=== PATIENT | male | born 1930 | race Caucasian/White ===

== ENCOUNTER 2018-04-30 09:04 | Emergency (ER) | payer MEDICARE, OTHER ==
[~2018-04-30] VITALS: Ht 177.8 cm; Wt 57.3 kg
[2018-04-30 09:18] VITALS: BP 155/74
[2018-04-30] MEDS ORDERED: tranexamic acid 100mg/ml inj. TP ONE (09:50)
[2018-04-30] MEDS ORDERED: LIDOcaine 4% (40 mg/ml) topical solution 50ml TP ONE (09:50)
--- NOTE | 2018-04-30 10:28 | NUR ---
PER KENNEDY LOERA, MEDICATIONS ORDERED TO BE CANCELLED BLEEDING HAS STOPPED (SEE EMAR).
== END 2018-04-30 11:13 | disposition home or self-care (01) ==
LOC: ER 09:06
DX: R04.0 Epistaxis (principal); H61.22 Impacted cerumen, left ear; J45.909 Unspecified asthma, uncomplicated
CPT/HCPCS: 99282; 99283

== ENCOUNTER 2019-03-15 15:12 | Emergency (ER) | payer MEDICARE ==
[~2019-03-15] VITALS: Ht 177.8 cm; Wt 56.0 kg
[~2019-03-15 15:12] MED LIST: LIDOcaine 1% 30ml preserv. free vial ONE
[2019-03-15] MEDS ORDERED: LIDOcaine 1% 30ml preserv. free vial IJ ONE (16:55)
[2019-03-15] MEDS ORDERED: bacitracin 15gm ointment TP ONE (16:55)
[2019-03-15 19:03] VITALS: BP 140/89
== END 2019-03-15 19:05 | disposition home or self-care (01) ==
LOC: ER 15:13
DX: S02.2XXA Fracture of nasal bones, initial encounter for closed fracture (principal); S01.21XA Laceration without foreign body of nose, initial encounter; S80.812A Abrasion, left lower leg, initial encounter; M25.532 Pain in left wrist; J45.909 Unspecified asthma, uncomplicated; Z88.0 Allergy status to penicillin; W18.30XA Fall on same level, unspecified, initial encounter; Y93.89 Activity, other specified; Y92.481 Parking lot as the place of occurrence of the external cause; Y99.9 Unspecified external cause status
CPT/HCPCS: 12011; 70450; 70486; 99284; J2001

== ENCOUNTER 2019-11-18 08:42 | Emergency (ER) | payer OTHER, MEDICARE ==
[~2019-11-18] VITALS: Ht 177.8 cm; Wt 61.0 kg
[2019-11-18 08:45] VITALS: BP 139/81
[2019-11-18] MEDS: tranexamic acid 100mg/ml inj. TP ONE ×2 (09:05→09:56)
[2019-11-18] MEDS ORDERED: LIDOcaine 4% (40 mg/ml) topical solution 50ml TP ONE (09:05)
[2019-11-18] MEDS ORDERED: oxymetazoline 15 ML nasal spray NS ONE (09:05)
== END 2019-11-18 10:18 | disposition home or self-care (01) ==
LOC: ER 08:42
DX: R04.0 Epistaxis (principal); J45.909 Unspecified asthma, uncomplicated; Z88.0 Allergy status to penicillin
CPT/HCPCS: 99283; 99284